=== PATIENT | male | born 1980 | race Caucasian/White ===

== ENCOUNTER 2017-08-07 18:37 | Emergency (ER) | payer OTHER ==
[~2017-08-07] VITALS: Ht 180.3 cm; Wt 80.9 kg
[2017-08-07 18:43] VITALS: TEMP 36.8; Ht 180.3 cm; Wt 80.9 kg
--- NOTE | 2017-08-07 19:14 | EMERGENCY ROOM VISIT NOTE ---
History Report prepared by Milka: Eula Renteria Under the Supervision of: Dr. José Luis Block M.D. First contact with patient: 18:54 Chief Complaint: CARDIAC ASSESSMENT Stated Complaint: EKG TAKEN,REFERRED, TIGHT CHEST Nursing Triage Summary: Pt presents with c/o abd pain, left lower chest pain, n/v. Pt states he feels chest pain is related to the vomiting. N/V Wed, resolved then returned today. Pain in back. Denies SOB. Seen at [facility] and sent here. History of Present Illness The patient is a 37 year old male who presents to the Emergency Room with complaints of persistent chest tightness starting yesterday morning. The patient was referred to the ED from urgent care after an abnormal EKG. The patient has had abdominal pain, nausea, and vomiting for the past 2 days. He thought the chest pain might be related to his vomiting. He is feeling nauseous currently. He does not have any abdominal pain at this time. He has had chills and diaphoresis. He had diarrhea 2 days ago which has resolved. He denies any fever or sore throat. He denies any sick contacts. He denies any history of heart problems. He has a history of tick borne mammal meat allergy. He has not had any mammal meat. Source of History: patient Onset: yesterday morning Position: chest Quality: other (tightness) Timing: other (persistent) Associated Symptoms: + chills, + diaphoresis, + nausea, + vomiting, + abdominal pain, + diarrhea, No fevers, No sorethroat Review of Systems All systems have been listed, reviewed, and are negative other than those previously mentioned. Please see Additional Medical History Sheet. Past Medical & Surgical Medical Problems: (1) Vitiligo Family History Hypertension Social History Smoking Status: Never Smoker Alcohol Use: occasionally Marital Status: Housing Status: lives with significant other Occupation Status: employed Current/Historical Medications Scheduled Multivitamin (Multivitamin), 1 TAB PO DAILY Scheduled PRN Metoclopramide Hcl (Reglan), 10 MG PO Q6 PRN for nausea Allergies Coded Allergies: Alpha-Gal (Verified Allergy, Severe, VOMITING-(HIGH DOSES-ANAPHYLAXIS), ) Physical Exam Vital Signs Date Time Temp Pulse Resp B/P (MAP) Pulse Ox O2 Delivery O2 Flow Rate FiO2 08/07/17 23:42 78 20 158/74 98 08/07/17 22:55 73 18 154/76 98 Room Air 08/07/17 21:09 73 18 138/65 98 Room Air 08/07/17 19:52 67 18 139/72 98 Room Air 08/07/17 18:43 36.8 76 18 149/106 98 Room Air Physical Exam GENERAL: Patient awake, alert, oriented x 3. Patient follows commands. Patient does not appear toxic. Patient is adequately hydrated and well- nourished. SKIN: No erythema, pallor, cyanosis or rash HEENT: Normal head, pupils equal, reactive to light and accommodation. Ears normal. Oral cavity and posterior pharynx appear normal. Neck: Without adenopathy, no neck vein distention. LUNGS: Clear to auscultation. No wheezes, no rales, no rhonchi. HEART: No murmurs. No gallops. No rubs ABDOMEN: Vague generalized tenderness. No rebound, no guarding. EXTREMITIES: Skin changes consistent with vitiligo on both wrists and hands. NEUROLOGIC: Cranial nerves II-XII within normal limits. No gross motor sensory function deficits. Medical Decision & Procedures ER Provider Diagnostic Interpretation: X ray results are stated below per my interpretation and the radiologist's interpretation. CHEST 2 VIEWS ROUTINE HISTORY: 37 years-old Male chest pain acute atypical chest pain COMPARISON: None available TECHNIQUE: PA and lateral views of the chest FINDINGS: Cardiomediastinal and hilar silhouettes are within normal limits. No pneumothorax, pleural effusion, focal airspace consolidation or overt pulmonary edema. Bones of the chest appear grossly intact. IMPRESSION: No acute cardiopulmonary process. The above report was generated using voice recognition software. It may contain grammatical, syntax or spelling errors. Electronically signed by: Bobby Montelongo M.D. 08/07/2017 8:14 PM Dictated Date/Time: 08/07/2017 8:13 PM Laboratory Results 08/07/17 19:15 Red Blood Count 5.37, Mean Corpuscular Volume 87.5, Mean Corpuscular Hemoglobin 32.2, Mean Corpuscular Hemoglobin Concent 36.8, Mean Platelet Volume 8.5, Neutrophils (%) (Auto) 79.3, Lymphocytes (%) (Auto) 12.6, Monocytes (%) (Auto) 7.4, Eosinophils (%) (Auto) 0.4, Basophils (%) (Auto) 0.1, Neutrophils # (Auto) 6.65, Lymphocytes # (Auto) 1.06, Monocytes # (Auto) 0.62, Eosinophils # (Auto) 0.03, Basophils # (Auto) 0.01 08/07/17 19:15 Test 08/07/17 19:15 08/07/17 20:20 White Blood Count 8.39 K/uL (4.8-10.8) Red Blood Count 5.37 M/uL (4.7-6.1) Hemoglobin 17.3 g/dL (14.0-18.0) Hematocrit 47.0 % (42-52) Mean Corpuscular Volume 87.5 fL (80-100) Mean Corpuscular Hemoglobin 32.2 pg (25-34) Mean Corpuscular Hemoglobin Concent 36.8 g/dl (32-36) Platelet Count 218 K/uL (130-400) Mean Platelet Volume 8.5 fL (7.4-10.4) Neutrophils (%) (Auto) 79.3 % Lymphocytes (%) (Auto) 12.6 % Monocytes (%) (Auto) 7.4 % Eosinophils (%) (Auto) 0.4 % Basophils (%) (Auto) 0.1 % Neutrophils # (Auto) 6.65 K/uL (1.4-6.5) Lymphocytes # (Auto) 1.06 K/uL (1.2-3.4) Monocytes # (Auto) 0.62 K/uL (0.11-0.59) Eosinophils # (Auto) 0.03 K/uL (0-0.5) Basophils # (Auto) 0.01 K/uL (0-0.2) RDW Standard Deviation 40.0 fL (36.4-46.3) RDW Coefficient of Variation 12.6 % (11.5-14.5) Immature Granulocyte % (Auto) 0.2 % Immature Granulocyte # (Auto) 0.02 K/uL (0.00-0.02) Anion Gap 10.0 mmol/L (3-11) Est Creatinine Clear Calc Drug Dose 118.2 ml/min Estimated GFR () 123.6 Estimated GFR (Non- 106.6 BUN/Creatinine Ratio 22.7 (10-20) Calcium Level 9.1 mg/dl (8.5-10.1) Total Bilirubin 0.8 mg/dl (0.2-1) Aspartate Amino Transf (AST/SGOT) 9 U/L (15-37) Alanine Aminotransferase (ALT/SGPT) 23 U/L (12-78) Alkaline Phosphatase 71 U/L (45-117) Troponin I < 0.015 ng/ml (0-0.045) Total Protein 7.6 gm/dl (6.4-8.2) Albumin 4.3 gm/dl (3.4-5.0) Globulin 3.3 gm/dl (2.5-4.0) Albumin/Globulin Ratio 1.3 (0.9-2) Lipase 100 U/L (73-393) Urine Color YELLOW Urine Appearance CLEAR (CLEAR) Urine pH 6.5 (4.5-7.5) Urine Specific [place] 1.031 (1.000-1.030) Urine Protein NEG (NEG) Urine Glucose (UA) NEG (NEG) Urine Ketones 3+ (NEG) Urine Occult Blood NEG (NEG) Urine Nitrite NEG (NEG) Urine Bilirubin NEG (NEG) Urine Urobilinogen NEG (NEG) Urine Leukocyte Esterase NEG (NEG) Laboratory results as stated above per my review. Medications Administered Medications (Trade) Dose Ordered Sig/Yeison Route Start Time Stop Time Status Last Admin Dose Admin Sodium Chloride 1,000 ml @ 1,000 mls/hr Q1H ONCE IV 08/07/17 19:15 08/07/17 20:14 DC 08/07/17 19:30 1,000 MLS/HR Ondansetron HCl (Zofran Inj) 4 mg Q1HWA PRN IV 08/07/17 19:15 09/06/17 19:14 08/07/17 21:06 4 MG Promethazine HCl 12.5 mg/Sodium Chloride 50.5 ml @ 204 mls/hr NOW STAT IV 08/07/17 20:08 08/07/17 20:22 DC 08/07/17 20:22 204 MLS/HR Metoclopramide HCl (Reglan Inj) 10 mg NOW STAT IV 08/07/17 22:21 08/07/17 22:22 DC 08/07/17 22:40 10 MG Ondansetron HCl (ZOFRAN ODT 4MG Home Pack) 1 homepack UD ONCE PO 08/07/17 23:30 08/07/17 23:31 DC 08/07/17 23:30 1 HOMEPACK ECG Indication: chest pain Rate (beats per minute): 61 Rhythm: normal sinus Findings: Q waves (lead 1 and aVL), RBBB (incomplete), no acute ischemic change , no ectopy ED Course 1854: Past medical records reviewed. The patient was evaluated in room C7. A complete history and physical examination was performed. 1914: Zofran Inj 4 mg IV, NSS 1000 ml @ 1000 mls/hr IV. 2007: Promethazine HCl 12.5 mg/Sodium Chloride 50.5 ml @ 204 mls/hr IV. 2220: Reglan Inj 10 mg IV. 9: Upon reevaluation, the patient was feeling much better. He is no longer nauseous. I discussed today's findings with him. He verbalized agreement of the treatment plan. He was discharged home. 0: Ondansetron HCl 1 homepack PO. Medical Decision I considered multiple diagnoses including myocardial infarction, chest wall pain , pericarditis, myocarditis, aortic emergencies, pulmonary embolism, congestive heart failure, gastroenteritis, GI causes, other viral illness, dehydration, and other significant cardiopulmonary disorders. The patient is here with left-sided chest pain, nausea and repetitive vomiting. Multiple labs, EKG and imaging were obtained. Please see above. EKG does not reveal any acute changes. Chest x-ray is unremarkable. The patient was given multiple anti-emetic medications which did ultimately help. The patient was also given a liter of IV fluids and was able to drink oral fluids prior to departure. The patient's chest pain is felt to be musculoskeletal from the repetitive vomiting. I believe he has a viral cause for the GI disturbance. The patient will be given a prescription for Reglan which seemed to help him the most. He was also given a home pack of Zofran. Medication Reconcilliation Current Medication List: was personally reviewed by me Blood Pressure Screening Patient's blood pressure: Elevated blood pressure Blood pressure disposition: Elevated BP felt to be situational Impression Primary Impression: Nausea & vomiting Additional Impressions: Chest wall pain Dehydration Scribe Attestation The scribe's documentation has been prepared under my direction and personally reviewed by me in its entirety. I confirm that the note above accurately reflects all work, treatment, procedures, and medical decision making performed by me. Departure Information Dispostion Home / Self-Care Prescriptions Metoclopramide Hcl (REGLAN) 10 Mg Tab 10 MG PO Q6 Y for nausea, #10 TAB Prov: José Luis Block M.D. 08/07/17 Referrals [facility] (PCP) Patient Instructions My [facility] Additional Instructions One sublingual Zofran every 2 hours as needed for nausea/vomiting. 1 Reglan every 6 hours as needed for nausea. Drink at least 1 gallon of liquid of the next 24 hours. Return here if you're unable to hold down liquids. Problem Qualifiers
[2017-08-07] MEDS ORDERED: SODIUM CHLORIDE 0.9% 1000ML 1,000 ML IV ONE (19:15)
[2017-08-07] MEDS: ONDANSETRON INJ 2 MG/ML 2 ML VIAL IV PRN ×2 (19:30→21:06)
[2017-08-07 19:31] LABS: BASO % 0.1 %; BASO ABS # 0.01 K/uL (0-0.2); COMPLETE YES; EOS % 0.4 %; IG% 0.2 %; LYMPH % 12.6 %; LYMPH ABS # 1.06 K/uL (1.2-3.4); MEAN CELL VOLUME 87.5 fL (80-100); MEAN CORPUSCULAR HEMOGLOBIN 32.2 pg (25-34); MEAN CORPUSCULAR HGB CONC 36.8 g/dl (32-36); MEAN PLATELET VOLUME 8.5 fL (7.4-10.4); MONO % 7.4 %; NEUT % 79.3 %; PLATELET COUNT 218 K/uL (130-400); RED BLOOD COUNT 5.37 M/uL (4.7-6.1); WHITE BLOOD COUNT 8.39 K/uL (4.8-10.8)
[2017-08-07 19:53] LABS: ALT/SGPT 23 U/L (12-78); BLOOD UREA NITROGEN 21 mg/dl (7-18); BUN/CREATININE RATIO 22.7 (10-20); CALCIUM 9.1 mg/dl (8.5-10.1); CARBON DIOXIDE 24 mmol/L (21-32); CHLORIDE 103 mmol/L (98-107); CREATININE 0.92 mg/dl (0.60-1.40); GLUCOSE 103 mg/dl (70-99); POTASSIUM 3.4 mmol/L (3.5-5.1); SODIUM 137 mmol/L (136-145)
[2017-08-07 19:58] LABS: ALB/GLOB RATIO 1.3 (0.9-2); ALKALINE PHOSPHATASE 71 U/L (45-117); AST/SGOT 9 U/L (15-37)
[2017-08-07] MEDS ORDERED: PROMETHAZINE HCL INJ 12.5 MG in SODIUM CHLORIDE 0.9% 50ML 50 ML IV STA (20:08)
--- NOTE | 2017-08-07 20:15 | DIAGNOSTIC IMAGING REPORT ---
CHEST 2 VIEWS ROUTINE HISTORY: 37 years-old Male chest pain acute atypical chest pain COMPARISON: None available TECHNIQUE: PA and lateral views of the chest FINDINGS: Cardiomediastinal and hilar silhouettes are within normal limits. No pneumothorax, pleural effusion, focal airspace consolidation or overt pulmonary edema. Bones of the chest appear grossly intact. IMPRESSION: No acute cardiopulmonary process. The above report was generated using voice recognition software. It may contain grammatical, syntax or spelling errors. Electronically signed by: Bobby Montelongo M.D. 08/07/2017 8:14 PM Dictated Date/Time: 08/07/2017 8:13 PM
[2017-08-07 20:41] LABS: URINE APPEARANCE CLEAR (CLEAR); URINE BILIRUBIN NEG (NEG); URINE COLOR YELLOW; URINE NITRITE NEG (NEG); URINE PH 6.5 (4.5-7.5); URINE SPECIFIC GRAVITY 1.031 (1.000-1.030); UROBILINOGEN NEG (NEG); ZZUR CULT IF INDIC CLEAN CATCH NO
[2017-08-07 20:45] LABS: MANUAL MICROSCOPIC REQUIRED? NO; REVIEW REQ? NO
[2017-08-07] MEDS ORDERED: MULT-506 PO (21:13)
[2017-08-07] MEDS ORDERED: METOCLOPRAMIDE HCL INJ 5 MG/ML 2 ML VIAL IV STA (22:21)
[2017-08-07] MEDS ORDERED: ONDANSETRON HOME PACK 4MG OD TAB PO ONE (23:30)
[2017-08-07] MEDS ORDERED: METO1TAB55 PO (23:31)
[2017-08-07 23:42] VITALS: BP 158/74; PULSE 78; O2SAT 98
== END 2017-08-07 23:44 | disposition home or self-care (01) ==
LOC: C.EDB 18:38 → C.EDC 23:44
DX: R11.2 Nausea with vomiting, unspecified (principal); R07.89 Other chest pain; E86.0 Dehydration; Z82.49 Family history of ischemic heart disease and other diseases of the circulatory system

== ENCOUNTER → 2017-09-15 | Outpatient (CLI) | payer OTHER ==
[~2017-09-15] MED LIST: METO1TAB55 PO; MULT-506 PO
== END | disposition home or self-care (01) ==
LOC: C.LAB 08:13
PROVIDERS: ATTEND Family Medicine
DX: Z31.41 Encounter for fertility testing (principal)